=== PATIENT | female | born 1955 | race Caucasian/White ===

== ENCOUNTER → 2017-10-27 | Outpatient (CLI) | payer BC | END | disposition home or self-care (01) | LOC: LAB SHORT 11:56 → LAB 11:56 | PROVIDERS: Nurse Practitioner Women's Health | DX: Z12.4 Encounter for screening for malignant neoplasm of cervix (principal); Z91.89 Other specified personal risk factors, not elsewhere classified | CPT/HCPCS: 87624; G0123 ==

== ENCOUNTER 2019-01-11 08:25 | Emergency (ER) | payer OTHER, BC ==
[~2019-01-11] VITALS: Ht 160 cm; Wt 90.7 kg
[2019-01-11] MEDS ORDERED: DULO60 PO (08:50)
[2019-01-11] MEDS ORDERED: TRAZ100 PO (08:51)
[2019-01-11] MEDS ORDERED: HYDCHL12.5 PO (08:51)
[2019-01-11] MEDS ORDERED: Flonase 0.05% N16 GM (08:52)
[2019-01-11] MEDS ORDERED: Cleocin HCl300 MG PO (09:37)
[2019-01-11] MEDS ORDERED: HYDR1TAB94 PO (09:51)
== END 2019-01-11 10:20 | disposition home or self-care (01) ==
LOC: ER 08:25
DX: S60.051A Contusion of right little finger without damage to nail, initial encounter (principal); S80.11XA Contusion of right lower leg, initial encounter; K11.20 Sialoadenitis, unspecified; Z88.1 Allergy status to other antibiotic agents; Z79.899 Other long term (current) drug therapy; W01.0XXA Fall on same level from slipping, tripping and stumbling without subsequent striking against object, initial encounter
CPT/HCPCS: 29130; 73130; 73564; 99283-25